=== PATIENT | female | born 1950 | race Caucasian/White ===

== ENCOUNTER → 2016-08-12 | Outpatient (REF) | payer OTHER ==
[~2016-08-12] MED LIST: /PRAV20TA PO; /WARF25TA PO; ALEV220C2 PO; ALLO300T2 PO; ASPI81TA7 PO; ASPI81TA85 PO; ATEN25TA PO; AVAP300T PO; COUM10TA PO; FERR325T16 PO; FLUO10CA8 PO; IRBE150T12 PO; METF1000 PO; NAPR220C PO; NOVALOG INSULIN SC; NOVO70VL SC; OMEP20CA3 PO; OXYC60TA PO; PERC5TAB6 PO; PERCOCET PO; PRAV40TA2 PO; PX O20TA PO; SOMA350T PO; TYLE325T5 PO; VICO7.5T11 PO; VIT250TA PO; VITATAB26 PO; ZYLO300T4 PO; [UNRECOGNIZED DRUG - OTHER] PO
== END | disposition home or self-care (01) ==
LOC: M LAB REF 16:36
PROVIDERS: ATTEND Internal Medicine Medical Oncology
DX: D72.829 Elevated white blood cell count, unspecified (principal)

== ENCOUNTER → 2017-02-25 | Outpatient (REF) | payer OTHER ==
[~2017-02-25] MED LIST changes: +METF10004 PO; +PERC5TAB12 PO; -PERC5TAB6 PO
[2017-02-25 17:08] LABS: PERCENT SATURATION 24.4 % (13.2-45.0)
== END ==
LOC: M LAB REF 16:35
PROVIDERS: ATTEND Internal Medicine Medical Oncology
DX: D50.9 Iron deficiency anemia, unspecified (principal); D72.829 Elevated white blood cell count, unspecified

== ENCOUNTER → 2017-05-27 | Outpatient (REF) | payer OTHER | LOC: M LAB REF 17:59 | PROVIDERS: ATTEND Internal Medicine Medical Oncology | DX: D64.9 Anemia, unspecified (principal) ==

== ENCOUNTER → 2017-08-28 | Outpatient (REF) | payer OTHER ==
[2017-08-28 18:38] LABS: FERRITIN 63 NG/ML (8-252); IRON (FE) 104 UG/DL (50-170); PERCENT SATURATION 26.5 % (13.2-45.0); TOTAL IRON BINDING CAPACITY 392 UG/DL (250-450)
== END ==
LOC: M LAB REF 17:08
DX: D50.9 Iron deficiency anemia, unspecified (principal)
CPT/HCPCS: 83550

== ENCOUNTER → 2017-11-25 | Outpatient (REF) | payer OTHER ==
[2017-11-25 14:12] LABS: FERRITIN 37 NG/ML (8-252); IRON (FE) 83 UG/DL (50-170); PERCENT SATURATION 20.4 % (13.2-45.0); TOTAL IRON BINDING CAPACITY 407 UG/DL (250-450)
== END ==
LOC: M LAB REF 13:24
DX: D50.9 Iron deficiency anemia, unspecified (principal)
CPT/HCPCS: 83550

== ENCOUNTER → 2018-03-25 | Outpatient (REF) | payer OTHER ==
[2018-03-25 14:03] LABS: FERRITIN 44 NG/ML (8-252); FOLATE 8.8 NG/ML; IRON (FE) 71 UG/DL (50-170); TOTAL IRON BINDING CAPACITY 363 UG/DL (250-450)
[2018-03-25 20:58] LABS: PERCENT SATURATION 19.5 % (13.2-45.0)
== END ==
LOC: M LAB REF 13:08
DX: D50.9 Iron deficiency anemia, unspecified (principal); D72.829 Elevated white blood cell count, unspecified
CPT/HCPCS: 82746

== ENCOUNTER 2023-05-05 07:21 | Day surgery (SDC) | payer MEDICARE, MEDICAID ==
[~2023-05-05] VITALS: Ht 157.5 cm; Wt 95.5 kg
[~2023-05-05 07:21] MED LIST changes: -/PRAV20TA PO; -/WARF25TA PO; +ACET-907 PO; +ALLO100T PO; +AMLO1TAB24 PO; -ASPI81TA85 PO; +ASPI81TA86 PO; +ATOR1TAB21 PO; +ATOR40TA75 PO; +BAYE325T12 PO; +COUM1TAB18 PO; +CYCLOPENTOLATE 1% OPHTH SOLN 2ML BTL OS SCH; +FAMO40TA3 PO; +FERR324T21 PO; -FERR325T16 PO; +FLUO10CA18 PO; +FLURBIPROFEN 0.03% OPHTH SOLN 2.5 ML OS SCH; +GLYCCAP PO; -IRBE150T12 PO; +IRBE150T7 PO; +LOSA100T46 PO; +LOSA50TA28 PO; +LR 1,000 ML IV SCH; +MAGN400C2 PO; +METO50TA7 PO; +MIDAZOLAM INJ 2MG/2ML VIAL As Ordered ONE; +OMEP-404 PO; +OXYC1TAB23 PO; -PERCOCET PO; +PHENYLEPHRINE 2.5% OPHTH SOL 2ML OS SCH; +PRAV1TAB39 PO; -PX O20TA PO; +RANI-397 PO; +SEMA1PEN2; +TETRACAINE 0.5% OPHTH SOLN 4ML OS SCH; +VICO7.5T12 PO; +VITA100093 PO; -ZYLO300T4 PO; +ZYLO300T6 PO; +fentaNYL 100 MCG/2 ML INJECTION As Ordered ONE
[2023-05-05] MEDS ORDERED: CEFUROXIME 1MG/0.1ML INTRACAMERAL INJ As Ordered ONE (08:01)
[2023-05-05] MEDS ORDERED: LIDOCAINE 1% SDV 5ML VIAL As Ordered ONE (08:02)
[2023-05-05 10:03] VITALS: BP 131/62; TEMP 97.9; O2SAT 97
== END 2023-05-05 10:20 | disposition home or self-care (01) ==
LOC: M SDC 07:21
PROVIDERS: ATTEND Ophthalmology
DX: H25.12 Age-related nuclear cataract, left eye (principal); E11.9 Type 2 diabetes mellitus without complications; R06.83 Snoring; I10 Essential (primary) hypertension; Z88.2 Allergy status to sulfonamides; Z88.4 Allergy status to anesthetic agent; Z91.048 Other nonmedicinal substance allergy status; Z95.1 Presence of aortocoronary bypass graft; Z79.899 Other long term (current) drug therapy; Z79.84 Long term (current) use of oral hypoglycemic drugs; Z79.4 Long term (current) use of insulin; Z79.85 Long-term (current) use of injectable non-insulin antidiabetic drugs; Z79.82 Long term (current) use of aspirin
CPT/HCPCS: 66984; J0697; J2250; J3010; V2632

== ENCOUNTER 2023-06-02 05:55 | Day surgery (SDC) | payer MEDICARE, MEDICAID ==
[~2023-06-02] VITALS: Ht 157.5 cm; Wt 95.8 kg
[~2023-06-02 05:55] MED LIST changes: -CYCLOPENTOLATE 1% OPHTH SOLN 2ML BTL OS SCH; -FLURBIPROFEN 0.03% OPHTH SOLN 2.5 ML OS SCH; -LR 1,000 ML IV SCH; +METF500T13 PO; -MIDAZOLAM INJ 2MG/2ML VIAL As Ordered ONE; -PHENYLEPHRINE 2.5% OPHTH SOL 2ML OS SCH; -TETRACAINE 0.5% OPHTH SOLN 4ML OS SCH; +VITA-199 PO; -fentaNYL 100 MCG/2 ML INJECTION As Ordered ONE
[2023-06-02] MEDS ORDERED: CYCLOPENTOLATE 1% OPHTH SOLN 2ML BTL OD SCH (06:00)
[2023-06-02] MEDS ORDERED: PHENYLEPHRINE 2.5% OPHTH SOL 2ML OD SCH (06:00)
[2023-06-02] MEDS ORDERED: FLURBIPROFEN 0.03% OPHTH SOLN 2.5 ML OD SCH (06:00)
[2023-06-02] MEDS ORDERED: TETRACAINE 0.5% OPHTH SOLN 4ML OD SCH (06:00)
[2023-06-02] MEDS ORDERED: LIDOCAINE 1% SDV 5ML VIAL As Ordered ONE (06:46)
[2023-06-02] MEDS ORDERED: LR 1,000 ML IV SCH (07:00)
[2023-06-02] MEDS ORDERED: CEFUROXIME 1MG/0.1ML INTRACAMERAL INJ As Ordered ONE (07:02)
[2023-06-02] MEDS ORDERED: propofoL 200 MG/20 ML VIAL As Ordered ONE (07:08)
[2023-06-02] MEDS ORDERED: fentaNYL 100 MCG/2 ML INJECTION As Ordered ONE (07:24)
[2023-06-02] MEDS ORDERED: dexmedeTOMIDine (4MCG/ML)200MCG/50ML BTL (PRECEDEX) As Ordered ONE (07:25)
[2023-06-02] MEDS ORDERED: LABETALOL 100MG/20ML VIAL As Ordered ONE (07:48)
[2023-06-02 07:55] VITALS: BP 143/67; TEMP 97.6; O2SAT 95
== END 2023-06-02 08:15 | disposition home or self-care (01) ==
LOC: M SDC 05:55
PROVIDERS: ATTEND Ophthalmology
DX: E11.36 Type 2 diabetes mellitus with diabetic cataract (principal); H25.11 Age-related nuclear cataract, right eye; I12.9 Hypertensive chronic kidney disease with stage 1 through stage 4 chronic kidney disease, or unspecified chronic kidney disease; N18.30 Chronic kidney disease, stage 3 unspecified; M10.9 Gout, unspecified; Z79.899 Other long term (current) drug therapy; Z79.84 Long term (current) use of oral hypoglycemic drugs; Z79.82 Long term (current) use of aspirin; Z88.6 Allergy status to analgesic agent; Z88.5 Allergy status to narcotic agent; Z95.1 Presence of aortocoronary bypass graft
CPT/HCPCS: 66984; J0697; J1920; J3010; V2632